=== PATIENT | male | born 1940 | race Caucasian/White ===

== ENCOUNTER 2023-11-05 04:05 | Emergency (ER) | payer OTHER | END 2023-11-05 05:30 | LOC: CSHERS 04:05 | DX: T85.520A Displacement of bile duct prosthesis, initial encounter (principal); I25.10 Atherosclerotic heart disease of native coronary artery without angina pectoris; E11.9 Type 2 diabetes mellitus without complications; I10 Essential (primary) hypertension; E11.40 Type 2 diabetes mellitus with diabetic neuropathy, unspecified; Z79.899 Other long term (current) drug therapy; Z79.82 Long term (current) use of aspirin; Z79.84 Long term (current) use of oral hypoglycemic drugs | CPT/HCPCS: 74018; 99283 ==